=== PATIENT | male | born 1990 | race Two or more races ===

== ENCOUNTER → 2021-01-04 | Outpatient (CLI) | payer SELFPAY ==
--- NOTE | 2021-01-04 15:25 | REP ---
INDICATION: SOB COUGH. COMPARISON: No comparison study. TECHNIQUE: Three views are presented. Inspiration and expiration PA views are included... FINDINGS: The lungs are well inflated and free of infiltrate. The pleural angles are sharp. The heart size is normal. Pulmonary vasculature is not increased. No significant bony abnormality is seen. IMPRESSION: Negative chest x-ray. <Electronically signed by Evan Snowden > 01/04/21 [id number]
== END ==
LOC: M CARPUL 11:09
PROVIDERS: ATTEND Physician Assistant Medical
DX: R06.02 Shortness of breath (principal)

== ENCOUNTER → 2021-01-23 | Outpatient (CLI) | payer SELFPAY ==
--- NOTE | 2021-01-23 12:35 | PFTRPT ---
Height: 66.00 Inches Weight: 181.00 Lbs BSA: 1.92 Diagnosis: R06.02 DATE: 01/23/2021 ORDERING PHYSICIAN: CHANELLE Garnett Pre and post bronchodilator studies have excellent technical quality. Forced vital capacity is normal. FEV1 is in proportion. Obstructive index is therefore normal. Expiratory limit of the flow-volume loop is normal. No significant bronchodilator response is identified. Total lung capacity is normal. Residual volume is in proportion. Diffusing capacity is normal. No hemoglobin available for correction. Airway resistance and conductance are normal. IMPRESSION: Normal study. MTDD
== END ==
LOC: M CARPUL 11:54
PROVIDERS: ATTEND Physician Assistant Medical
DX: R06.02 Shortness of breath (principal)